=== PATIENT | male | born 1960 | race Hispanic/Latino ===

== ENCOUNTER → 2019-02-13 | Outpatient (CLI) | payer BC ==
[~2019-02-13] MED LIST: ATORVASTATIN CA20 MG PO; ECOTRIN81 MG PO; JALYN 0.5-0.41 EACH PO; LISINOPRIL2.5 MG PO; METOPROLOL SUCC25 MG PO; OMEPRAZOLE40 MG PO; PLAVIX75 MG PO; [UNRECOGNIZED DRUG - OTHER] PO
[2019-02-13 14:59] LABS: BASOPHILS % 0.6 % (0.0-1.0); EOSINOPHILS # (AUTO) 0.2 (0.0-0.4); EOSINOPHILS % 2.8 % (0.0-6.0); HEMATOCRIT 38.6 % (38.2-49.6); HEMOGLOBIN 13.2 g/dL (14.0-18.0); LYMPHOCYTES # (AUTO) 2.1 (1.0-3.2); LYMPHOCYTES % 32.7 % (18.0-39.1); MEAN CORPUSCULAR HEMOGLOBIN 31.3 pg (28-32); MEAN CORPUSCULAR HGB CONC 34.2 g/dL (31-35); MEAN CORPUSCULAR VOLUME 91.5 fL (81-99); MONOCYTES # (AUTO) 0.6 (0.2-0.8); MONOCYTES % 8.7 % (4.4-11.3); NEUTROPHILS # (AUTO) 3.5 (2.1-6.9); NEUTROPHILS % 54.9 % (38.7-80.0); PLATELET COUNT 197 x10e3/uL (140-360); RED BLOOD COUNT 4.22 x10e6/uL (4.3-5.7); RED CELL DISTRIBUTION WIDTH 12.5 % (11.7-14.4)
--- NOTE | 2019-02-13 15:42 | Diagnostic Imaging Report ---
Chest, 2 views, 02/13/2019. History: Preop, shoulder surgery. Comparison: None available. Findings: The cardiomediastinal silhouette and pulmonary vasculature are within normal limits. There is minimal right apical pleural thickening. The lungs are clear without evidence of consolidation or pleural effusion. Median sternotomy wires are present. There are no acute osseous or soft tissue abnormalities. Impression: No acute cardiopulmonary abnormality. Signed by: Madi Berumen on 02/13/2019 3:38 PM
== END ==
LOC: RAD 05:00 → EDSTATUS 02-14 08:00
PROVIDERS: ATTEND Specialist
DX: Z01.810 Encounter for preprocedural cardiovascular examination (principal); Z01.812 Encounter for preprocedural laboratory examination; M75.101 Unspecified rotator cuff tear or rupture of right shoulder, not specified as traumatic
CPT/HCPCS: 36415; 71046; 85025; 93005

== ENCOUNTER → 2019-08-14 | Outpatient (CLI) | payer BC ==
[~2019-08-14] MED LIST changes: +MULTI-VITAMIN1 EACH
--- NOTE | 2019-08-14 13:47 | Diagnostic Imaging Report ---
EXAMINATION: CHEST 2 VIEWS INDICATION: ^PER PROTOCOL ^[id number] ^1317 ^PRE ADMIT COMPARISON: None FINDINGS: PA and lateral views TUBES and LINES: None. LUNGS: Lungs are well inflated. Lungs are clear. There is no evidence of pneumonia or pulmonary edema. PLEURA: No pleural effusion or pneumothorax. HEART AND MEDIASTINUM: The cardiomediastinal silhouette is unremarkable. BONES AND SOFT TISSUES: No acute osseous lesion. Sternotomy wires. UPPER ABDOMEN: No free air under the diaphragm. IMPRESSION: No acute thoracic radiographic abnormality. Signed by: Mason Rivas MD on 08/14/2019 1:45 PM
== END ==
LOC: RAD 14:55 → EDSTATUS 08-22 07:30
PROVIDERS: ATTEND Specialist
DX: Z01.818 Encounter for other preprocedural examination (principal); M75.101 Unspecified rotator cuff tear or rupture of right shoulder, not specified as traumatic; Z53.8 Procedure and treatment not carried out for other reasons
CPT/HCPCS: 71046

== ENCOUNTER → 2019-08-29 | Day surgery (SDC) | payer BC ==
[~2019-08-29] MED LIST changes: +ACETAMINOPHEN 1000 MG/100 ML IV ONE; +BUPIVACAINE HCL 0.5% INJ 30 ML VIAL INJ ONE; +CEFAZOLIN SOD 1 GM/NS 50ML 100 ML IV ONE; +DEXAMETHASONE SOD PHOS INJ 4 MG/ML VIAL ONE; +EPINEPHRINE 1 MG/ML 30ML VIAL ONE; +EPINEPHRINE HCL 1:1000 1ML 1 MG/ML AMP ONE; +FENTANYL CITRATE/PF 100MCG/2 ML INJ ONE; +HYDROMORPHONE 2MG/ML 2 MG/ML ML ONE; +LIDOCAINE HCL 2% LOCAL INJ 5 ML SDV VIAL INJ ONE; +MIDAZOLAM HCL 2 MG/2 ML VIAL ONE; +ONDANSETRON HCL INJ 2MG/ML 2ML 2 MG/ML VIAL ONE; +PROPOFOL IV EMULSION 10 MG/ML 20 ML VIAL ONE; +ROCURONIUM BROMIDE 10 MG/ML 5ML VIAL ONE; +SEVOFLURANE INHAL SOLN 250 ML PEN BTL ONE
--- OUTSIDE RECORDS SUMMARY | 2019-08-29 06:25 | XMS REPORT ---
[facility] Address Unknown Phone Unavailable Care Team Providers Care Gas Producer Name Role Phone ESTEBAN ESTEVES Unavailable Unavailable Payers Payer Name Policy Type Policy Number Effective Date Expiration Date Problems This patient has no known problems. Allergies, Adverse Reactions, Alerts Allergy Name Allergy Type Status Severity Reaction(s) Onset Date Inactive Date Treating Clinician Comments No Known Allergies DA Active U 2013-11-22 00:00:00 Medications This patient has no known medications. Results Test Description Test Time Test Comments Text Results Atomic Results Result Comments CHEST 2 VIEWS 2019-08-14 13:44:00 [place] [address] Patient Name: VIJI COREY MR #: [id number] : 1960 Age/Sex: 58/M Req #: [id number] Adm Physician: Ordered by: ESTEBAN ESTEVES MD Report #: [id number] Location: OR Room/Bed: Procedure: [id number] DX/CHEST 2 VIEWS Exam Date: 08/14/19 Exam Time: 1317 REPORT STATUS: Signed EXAMINATION: CHEST 2 VIEWS INDICATION: PER PROTOCOL [id number] 1317 PRE ADMIT COMPARISON: None FINDINGS: PA and lateral views TUBES and LINES: None. LUNGS: Lungs are well inflated. Lungs are clear. There is no evidence of pneumonia or pulmonary edema. PLEURA: No pleural effusion or pneumothorax. HEART AND MEDIASTINUM: The cardiomediastinal silhouette is unremarkable. BONES AND SOFT TISSUES: No acute osseous lesion. Sternotomy wires. UPPER ABDOMEN: No free air under the diaphragm. IMPRESSION: No acute thoracic radiographic abnormality. Signed by: Donn Cui MD on 08/14/2019 1:45 PM Dictated By: DONN CUI MD 1345 Transcribed By: STEPHANIE on 08/14/19 1345 COPY TO: ESTEBAN ESTEVES MD CHEST 2 VIEWS 2019-02-13 15:38:00 [place] [address] Patient Name: VIJI COREY MR #: [id number] : 1960 Age/Sex: 58/M Req #: [id number] Adm Physician: Ordered by: ESTEBAN ESTEVES MD Report #: [id number] Location: OR Room/Bed: Procedure: [id number] DX/CHEST 2 VIEWS Exam Date: 02/13/19 Exam Time: 1450 REPORT STATUS: Signed Chest, 2 views, 02/13/2019. History: Preop, shoulder surgery. Comparison: None available. Findings: The cardiomediastinal silhouette and pulmonary vasculature are within normal limits. There is minimal right apical pleural thickening. The lungs are clear without evidence of consolidation or pleural effusion. Median sternotomy wires are present. There are no acute osseous or soft tissue abnormalities. Impression: No acute cardiopulmonary abnormality. Signed by: Madi Berumen on 02/13/2019 3:38 PM Dictated By: MADI BERUMEN MD 1538 Transcribed By: STEPHANIE on 02/13/19 1538 COPY TO: ESTEBAN ESTEVES MD
[2019-08-29 11:20] VITALS: BP 131/81
--- NOTE | 2019-08-31 00:15 | Operative Report ---
DATE OF PROCEDURE: 08/29/2019 SURGEON: Andrew Sanabria MD PREOPERATIVE DIAGNOSIS: Right shoulder rotator cuff tear, right shoulder acromioclavicular joint arthrosis. POSTOPERATIVE DIAGNOSES: Right shoulder rotator cuff tear, right shoulder synovitis, right shoulder biceps tendon tear, right shoulder labral tear, right shoulder rotator cuff tear, right shoulder acromioclavicular joint arthritis. OPERATION PROCEDURE PERFORMED: The patient underwent a right shoulder examination under anesthesia, right shoulder arthroscopy, right shoulder debridement, arthroscopic debridement of synovitis, right shoulder arthroscopic biceps tenolysis, right shoulder arthroscopic rotator cuff reconstruction, right shoulder arthroscopic subacromial decompression and acromioplasty, and a right shoulder arthroscopic distal clavicle resection. DUMP GRADER: SUNIL Roldan ANESTHESIA: General endotracheal intubation anesthesia. IV FLUIDS: Per the anesthesia record. BRIEF DISCUSSION OF THE PATIENT'S OPERATIVE PROCEDURE: Mr. Huntley was taken to the operating room and placed in supine position on the operating table. Following induction of general anesthesia as well as the endotracheal intubation, the patient's right upper extremity was examined under anesthesia. He was found to have full passive range of motion of the shoulder joint. There were no gross abnormalities. The patient's upper extremity was prepped and draped in standard surgical fashion. Standard posterolateral and anterior portals were created without difficulty. The scope was placed within the shoulder joint atraumatically. Examination of the glenohumeral articulation demonstrated no significant evidence of chondromalacia. There was a diffuse synovitis within the shoulder joint. There were no loose bodies within the shoulder. Examination of the rotator cuff tissue demonstrated a moderate sized near-complete rotator cuff tear with a small area of complete tearing of the rotator cuff tissue. A probe was placed in the shoulder joint. Examination of biceps tendon demonstrated marked tearing of the biceps tendon, including greater than 50% of the body of the tendon itself. The injury extended into the labral tissue and there was a superior labral tear. The shaver was placed in the shoulder joint and the synovitis was debrided. The biceps tendon was also debrided and the area that extended into the labral tissue. Further examination of the biceps tendon demonstrated sections of near complete thickness tearing of the long head of the biceps. Remaining tendon was in poor condition and this included the portion that extended outside of the shoulder joint. A biceps tenolysis. Given the condition of the biceps tendon, a biceps tenolysis was performed at this time. The rotator cuff injury was also debrided. The area of near full-thickness tearing was elevated. The insertion site was debrided to a bleeding bony bed. The shoulder was inflated with sterile normal saline. The scope was then transferred into the subacromial space, and a lateral portal was created with an outside-in technique. There was significant bursal tissue in the subacromial space. A bursectomy was performed at this time. An anterolateral portal was created and the rotator cuff tear was easily identified. The insertion site was further debrided to a bleeding bony bed. A single triple-loaded suture anchor was inserted into the greater tuberosity and the suture arms from that anchor were then woven through the rotator cuff tissue. The rotator cuff tissue was then advanced and tied firmly over its insertion site. This resulted in complete reapproximation of the injury. The coracoacromial ligament was then resected. An aggressive acromioplasty was also performed at this time. Attention was then turned to the acromioclavicular joint. The soft tissues were debrided from the acromioclavicular joint. The joint was isolated. The anterior portal was transferred to the subacromial space. A shaver was placed through the anterior portal and a 1 cm section of the distal clavicle was resected arthroscopically. The scope was then transferred to the intraportal to confirm complete resection of the distal clavicle. The shoulder was then deflated with sterile normal saline. The portal sites were closed. Sterile dressings were applied. The patient was provided a shoulder immobilizer, awakened, and taken to the postanesthesia care in stable condition. Fern Stack was the welder first class for this case and was necessary for both prepping and draping the patient, as well as the position of the arm and passage of suture and closure of the wounds to allow this case to be successful. MD JUAN Schaeffer/DOTTIE /[id number]
== END | disposition home or self-care (01) ==
LOC: OR 05:55
PROVIDERS: ATTEND Specialist
DX: S43.431A Superior glenoid labrum lesion of right shoulder, initial encounter (principal); M75.111 Incomplete rotator cuff tear or rupture of right shoulder, not specified as traumatic; M19.011 Primary osteoarthritis, right shoulder; I25.10 Atherosclerotic heart disease of native coronary artery without angina pectoris; M65.811 Other synovitis and tenosynovitis, right shoulder; Z95.1 Presence of aortocoronary bypass graft
CPT/HCPCS: 29826; 29827; 29828; C1713; J0131; J0171; J0690; J1100; J1170; J2001; J2250; J2405; J2704; J3010

== ENCOUNTER 2019-11-23 07:59 | Outpatient (RCR) | payer BC ==
[~2019-11-23 07:59] MED LIST changes: -ACETAMINOPHEN 1000 MG/100 ML IV ONE; -BUPIVACAINE HCL 0.5% INJ 30 ML VIAL INJ ONE; -CEFAZOLIN SOD 1 GM/NS 50ML 100 ML IV ONE; -DEXAMETHASONE SOD PHOS INJ 4 MG/ML VIAL ONE; -EPINEPHRINE 1 MG/ML 30ML VIAL ONE; -EPINEPHRINE HCL 1:1000 1ML 1 MG/ML AMP ONE; -FENTANYL CITRATE/PF 100MCG/2 ML INJ ONE; -HYDROMORPHONE 2MG/ML 2 MG/ML ML ONE; -LIDOCAINE HCL 2% LOCAL INJ 5 ML SDV VIAL INJ ONE; -MIDAZOLAM HCL 2 MG/2 ML VIAL ONE; -ONDANSETRON HCL INJ 2MG/ML 2ML 2 MG/ML VIAL ONE; -PROPOFOL IV EMULSION 10 MG/ML 20 ML VIAL ONE; -ROCURONIUM BROMIDE 10 MG/ML 5ML VIAL ONE; -SEVOFLURANE INHAL SOLN 250 ML PEN BTL ONE
== END 2019-11-25 ==
LOC: PT 07:59
PROVIDERS: ATTEND Specialist
DX: M25.511 Pain in right shoulder (principal); M25.611 Stiffness of right shoulder, not elsewhere classified; M62.81 Muscle weakness (generalized); M75.101 Unspecified rotator cuff tear or rupture of right shoulder, not specified as traumatic

== ENCOUNTER 2019-12-05 09:00 | Outpatient (RCR) | payer BC | END 2019-12-25 | LOC: PT 09:00 | PROVIDERS: ATTEND Specialist | DX: M25.511 Pain in right shoulder (principal); M25.611 Stiffness of right shoulder, not elsewhere classified; M62.81 Muscle weakness (generalized) | CPT/HCPCS: 97139 ==

== ENCOUNTER 2022-01-04 14:34 | Outpatient (RCR) | payer BC | END 2022-01-24 | LOC: OT 14:34 | PROVIDERS: ATTEND Specialist | DX: M77.01 Medial epicondylitis, right elbow (principal) ==

== ENCOUNTER → 2022-03-22 | Outpatient (CLI) | payer BC | LOC: NM 09:07 | PROVIDERS: ATTEND Surgery | DX: M53.87 Other specified dorsopathies, lumbosacral region (principal) | CPT/HCPCS: 72110; 78306; A9503 ==